=== PATIENT | female | born 1990 | race Caucasian/White ===

== ENCOUNTER 2017-07-11 18:01 | Emergency (ER) | payer MEDICAID ==
[2015-01-17 15:34] VITALS: BMI 26.9
[~2017-07-11 18:01] MED LIST: ACETAMINOPHEN325 MG PO; BENADRYL25 MG PO; CRANBERRY475 MG PO; IBUPROFEN600 MG PO; PERCOCET 5-3251 TAB PO; PRENATAL COMPLE1 TAB PO
== END 2017-07-11 19:45 | disposition left against medical advice (07) ==
LOC: D.ER 18:01
DX: R10.84 Generalized abdominal pain (principal)

== ENCOUNTER 2017-07-28 10:27 | Emergency (ER) | payer MEDICAID ==
[2015-01-17 15:34] VITALS: BMI 26.9
[2017-07-28 11:21] LABS: BASOPHILS 0.2 % (0-2); EOSINOPHILS 0.9 % (0-7); HEMATOCRIT 38.8 % (36.0-48.0); HEMOGLOBIN 12.9 g/dL (12-16); LYMPHOCYTES 44.4 % (15-50); MCH 31.1 pg (26.0-34.0); MCHC 33.2 g/dL (31.0-37.0); MCV 93.5 fL (80.0-100.0); MEAN PLATELET VOLUME 9.2 fL (7.4-10.4); MONOCYTES 5.9 % (2-11); NEUTROPHILS 48.6 % (40-80); PLATELET COUNT 309 10x3/uL (130-400); RBC 4.15 10x6/uL (4.00-5.40); RDW 12.5 % (11.5-14.5); WBC 5.3 10x3/uL (4.8-10.8)
[2017-07-28 11:38] LABS: HCG SERUM NEGATIVE (NEGATIVE)
[2017-07-28 12:02] LABS: APPEARANCE HAZY (CLEAR); BILIRUBIN NEGATIVE (NEGATIVE); COLOR YELLOW (YELLOW); GLUCOSE NEGATIVE (NEGATIVE); KETONE NEGATIVE (NEGATIVE); NITRITE NEGATIVE (NEGATIVE); PROTEIN NEGATIVE (NEGATIVE); SPECIFIC GRAVITY 1.015 (1.005-1.020); UROBILINOGEN NORMAL (NORMAL)
== END 2017-07-28 14:30 | disposition home or self-care (01) ==
LOC: D.ER 10:27
PROVIDERS: Emergency Medicine
DX: R10.30 Lower abdominal pain, unspecified (principal); N92.0 Excessive and frequent menstruation with regular cycle; Z98.51 Tubal ligation status

== ENCOUNTER 2017-10-22 10:43 | Emergency (ER) | payer MEDICAID ==
[2015-01-17 15:34] VITALS: BMI 26.9
[2017-10-22 11:52] LABS: BASOPHILS 0.3 % (0-2); EOSINOPHILS 0 % (0-7); HEMATOCRIT 38.9 % (36.0-48.0); HEMOGLOBIN 12.8 g/dL (12-16); LYMPHOCYTES 15.9 % (15-50); MCH 31.4 pg (26.0-34.0); MCHC 32.9 g/dL (31.0-37.0); MCV 95.3 fL (80.0-100.0); MEAN PLATELET VOLUME 9.1 fL (7.4-10.4); MONOCYTES 10.2 % (2-11); NEUTROPHILS 73.6 % (40-80); PLATELET COUNT 323 10x3/uL (130-400); RBC 4.08 10x6/uL (4.00-5.40); RDW 12.6 % (11.5-14.5); WBC 3.5 10x3/uL (4.8-10.8)
[2017-10-22 12:03] LABS: ALBUMIN 3.3 g/dL (3.4-5.0); ALKALINE PHOSPHATASE 80 U/L (46-116); ALT (SGPT) 19 U/L (10-68); CALC OSMOLALITY 276 mosm/kg (275-300); CALCIUM 8.6 mg/dL (8.5-10.1); CARBON DIOXIDE 24.9 mmol/L (21.0-32.0); CHLORIDE - SERUM 104 mmol/L (98-107); CREATININE - SERUM 0.8 mg/dL (0.6-1.3); GLUCOSE 85 mg/dL (74-106); POTASSIUM - SERUM 4.2 mmol/L (3.5-5.1); PROTEIN - SERUM 7.1 g/dL (6.4-8.2); SODIUM 140 mmol/L (136-145); UREA NITROGEN 11 mg/dL (7-18); eGFR NON AFRICAN AMERICAN 90 mL/min (90-120)
[2017-10-22 12:05] LABS: UDS - AMPHET NEGATIVE QUAL (NEGATIVE); UDS - BARB NEGATIVE QUAL (NEGATIVE); UDS - BENZO NEGATIVE QUAL (NEGATIVE); UDS - COCAINE NEGATIVE QUAL (NEGATIVE); UDS - OPIATE NEGATIVE QUAL (NEGATIVE); UDS - PCP NEGATIVE QUAL (NEGATIVE); UDS - THC POSITIVE QUAL (NEGATIVE)
[2017-10-22 12:07] LABS: APPEARANCE HAZY (CLEAR); BILIRUBIN NEGATIVE (NEGATIVE); COLOR YELLOW (YELLOW); GLUCOSE NEGATIVE (NEGATIVE); KETONE MODERATE mg/dL (NEGATIVE); NITRITE NEGATIVE (NEGATIVE); PROTEIN NEGATIVE (NEGATIVE); SPECIFIC GRAVITY 1.015 (1.005-1.020); UROBILINOGEN NORMAL (NORMAL)
[2017-10-22 12:09] LABS: BACTERIA MODERATE /hpf (NONE SEEN); MUCUS >1+ /lpf (NONE SEEN); RED CELLS - URINE 0-5 /hpf (0-5)
[2017-10-22 12:22] LABS: HEMOGLOBIN A1C 5.1 % (4.8-6.0)
== END 2017-10-22 13:41 | disposition home or self-care (01) ==
LOC: D.ER 10:43
PROVIDERS: Physician Assistant
DX: R11.0 Nausea (principal); N39.0 Urinary tract infection, site not specified

== ENCOUNTER 2018-07-08 05:22 | Emergency (ER) | payer MEDICAID ==
[~2018-07-08] VITALS: Ht 157.5 cm; Wt 65.9 kg
[2018-07-08 05:25] VITALS: Ht 157.5 cm; Wt 65.9 kg
[2018-07-08] MEDS ORDERED: PROZAC10 MG PO (05:27)
[2018-07-08] MEDS ORDERED: ULTRAM50 MG PO (06:28)
[2018-07-08] MEDS ORDERED: FLUTICASONE PRO16 GM NASAL (06:28)
[2018-07-08 06:35] VITALS: BP 120/74
== END 2018-07-08 06:36 | disposition home or self-care (01) ==
LOC: D.ER 05:22
DX: R51 Headache (principal)

== ENCOUNTER 2018-07-27 00:50 | Emergency (ER) | payer MEDICAID ==
[~2018-07-27] VITALS: Ht 157.5 cm; Wt 65.9 kg
[~2018-07-27 00:50] MED LIST changes: +FLUTICASONE PRO16 GM NASAL; +PROZAC10 MG PO; +ULTRAM50 MG PO
[2018-07-27 00:58] VITALS: Ht 157.5 cm; Wt 65.9 kg
[2018-07-27] MEDS ORDERED: ELAVIL10 MG PO (01:19)
[2018-07-27] MEDS ORDERED: TORADOL10 MG PO (01:19)
[2018-07-27 02:14] VITALS: BP 128/78
== END 2018-07-27 02:12 | disposition home or self-care (01) ==
LOC: D.ER 00:50
DX: G43.909 Migraine, unspecified, not intractable, without status migrainosus (principal)

== ENCOUNTER 2021-03-14 11:00 | Outpatient (CLI) | payer MEDICAID ==
[2018-07-27 00:58] VITALS: BMI 26.6
[~2021-03-14 11:00] MED LIST changes: +ELAVIL10 MG PO; +TORADOL10 MG PO
== END 2021-03-14 11:30 | disposition home or self-care (01) ==
LOC: D.MAMMO 11:00
PROVIDERS: ATTEND Registered Nurse Emergency
DX: N64.4 Mastodynia (principal)